=== PATIENT | male | born 1970 | race Caucasian/White ===

== ENCOUNTER 2022-06-21 17:03 | Emergency (ER) | payer MEDICARE ==
[~2022-06-21] VITALS: Ht 172.7 cm; Wt 73.0 kg
[2022-06-21] MEDS ORDERED: KETOROLAC 60MG/2ML VIAL IM STA (17:13)
[2022-06-21] MEDS ORDERED: CYCL10TA21 MT (19:23)
[2022-06-21] MEDS ORDERED: IBUP-2029 MT (19:23)
[2022-06-21 19:45] VITALS: BP 138/92
== END 2022-06-21 19:52 | disposition home or self-care (01) ==
LOC: ER 17:03
DX: S20.219A Contusion of unspecified front wall of thorax, initial encounter (principal); V49.49XA Driver injured in collision with other motor vehicles in traffic accident, initial encounter; Y93.89 Activity, other specified; Y92.89 Other specified places as the place of occurrence of the external cause; Y99.8 Other external cause status
CPT/HCPCS: 71045; 93005; 96372; 99283; J1885

== ENCOUNTER → 2023-10-30 | Day surgery (SDC) | payer MEDICARE, MEDICAID ==
[~2023-10-30] VITALS: Ht 175.3 cm; Wt 73.5 kg
[~2023-10-30] MED LIST: AMIT10TA6 PO; BENZ100C86 PO; CHOL200026 PO; DEXAMETHASONE 4MG/ML 1ML VIAL ONE; FENTANYL CITRATE/PF 50MCG/ML 2ML VIAL IV PRN; FENTANYL CITRATE/PF 50MCG/ML 2ML VIAL ONE; FINA5TAB11 PO; GUAI600T26 PO; HYDROMORPHONE HCL/PF 1MG/ML INJ IV PRN; IBUP-2030 PO; LIDOCAINE HCL 1% 10 MG/ML 10ML VIAL ONE; MECL-299 PO; MIDAZOLAM HCL 2 MG/2 ML VIAL ONE; ONDANSETRON HCL 4MG/2ML INJ IV PRN; ONDANSETRON HCL 4MG/2ML INJ ONE; PARO40TA75 PO; PIPERACILLIN/TAZO 3.375G/50ML 50 ML IV SCH; PREG100C PO; PROPOFOL 200MG/20ML VIAL IV ONE; ROCURONIUM BROMIDE 10MG/ML VIAL 5ML IV ONE; SUGAMMADEX SODIUM 200MG/2ML VIAL IV ONE; TAMS-11 PO; TOPUD PO; [UNRECOGNIZED DRUG - CODE] PO
[2023-10-30] MEDS: LACTATED RINGERS 1,000 ML IV SCH (06:21)
[2023-10-30] MEDS: ACETAMINOPHEN 1000MG/100ML 100 ML IV NR (10:43)
== END | disposition home or self-care (01) ==
LOC: OR 05:11
PROVIDERS: ATTEND Urology
DX: C61 Malignant neoplasm of prostate (principal); I10 Essential (primary) hypertension; M19.90 Unspecified osteoarthritis, unspecified site; F41.9 Anxiety disorder, unspecified; I25.2 Old myocardial infarction; Z86.73 Personal history of transient ischemic attack (TIA), and cerebral infarction without residual deficits; Z79.899 Other long term (current) drug therapy; Z98.890 Other specified postprocedural states; Z88.0 Allergy status to penicillin
CPT/HCPCS: 55880; J3010; J0131; J1100; J3490 ×2; J2250; J2405; J2543; J2704

== ENCOUNTER 2023-12-04 12:34 | Emergency (ER) | payer MEDICARE, MEDICAID ==
[~2023-12-04] VITALS: Ht 175.3 cm; Wt 73.5 kg
[~2023-12-04 12:34] MED LIST changes: +APIX5TAB MT; -BENZ100C86 PO; -DEXAMETHASONE 4MG/ML 1ML VIAL ONE; +DOCU-138 MT; -FENTANYL CITRATE/PF 50MCG/ML 2ML VIAL IV PRN; -FENTANYL CITRATE/PF 50MCG/ML 2ML VIAL ONE; -FINA5TAB11 PO; +FLUT15.844 BOTHNSTRLS; -GUAI600T26 PO; -HYDROMORPHONE HCL/PF 1MG/ML INJ IV PRN; -IBUP-2030 PO; +IPRA42SP BOTHNSTRLS; -LIDOCAINE HCL 1% 10 MG/ML 10ML VIAL ONE; -MECL-299 PO; -MIDAZOLAM HCL 2 MG/2 ML VIAL ONE; +MONT-39 MT; -ONDANSETRON HCL 4MG/2ML INJ IV PRN; -ONDANSETRON HCL 4MG/2ML INJ ONE; -PIPERACILLIN/TAZO 3.375G/50ML 50 ML IV SCH; -PREG100C PO; -PROPOFOL 200MG/20ML VIAL IV ONE; -ROCURONIUM BROMIDE 10MG/ML VIAL 5ML IV ONE; -SUGAMMADEX SODIUM 200MG/2ML VIAL IV ONE
[2023-12-04 12:44] VITALS: O2SAT 98
[2023-12-04 14:28] LABS: CLARITY URINE CLEAR (CLEAR); COLOR URINE YELLOW (YELLOW); GLUCOSE URINE NEGATIVE (NEGATIVE); KETONES URINE TRACE (NEGATIVE); LEUKOCYTE ESTERASE URINE 3+ (NEGATIVE); NITRITE URINE NEGATIVE (NEGATIVE); OCCULT BLOOD URINE 2+ (NEGATIVE); PROTEIN URINE NEGATIVE (NEGATIVE); SPECIFIC GRAVITY URINE 1.005 (1.005-1.030); UROBILINOGEN URINE 0.2 E.U./dL (0.2-1.0)
[2023-12-04 14:59] LABS: SQUAMOUS EPITHELIAL CELL URINE NONE SEEN /lpf (RARE/1+)
[2023-12-04 15:00] LABS: RBC URINE 0-2 /hpf (0-2); WBC URINE 15-25 /hpf (0-2)
[2023-12-04 15:01] LABS: BACTERIA URINE TRACE
[2023-12-04 15:38] LABS: BASOPHILS % 0.7 % (0.0-2.0); EOSINOPHILS % 0.3 % (0.0-5.0); HEMATOCRIT. 43.3 % (42.0-52.0); HEMOGLOBIN. 14.9 g/dL (14.0-18.0); LYMPHOCYTES % 13.2 % (20.0-50.0); MEAN CORPUSCULAR HEMOGLOBIN 31.7 pg (28.0-32.0); MEAN CORPUSCULAR HGB CONC 34.4 g/dL (31.0-37.0); MEAN CORPUSCULAR VOLUME 92.2 fL (80.0-94.0); MONOCYTES % 5.1 % (2.0-8.0); NEUTROPHILS % 80.7 % (40.0-76.0); PLATELET 271 x1000/uL (130-400); RED BLOOD CELL COUNT 4.69 mill/uL (4.7-6.1); RED CELL DISTRIBUTION WIDTH 13.2 % (11.6-14.6); WHITE BLOOD COUNT 7.9 x1000/uL (4.5-11.0)
[2023-12-04 15:41] LABS: CHLORIDE 106 mEq/L (98-107); POTASSIUM 3.5 mEq/L (3.5-5.1); SODIUM 140 mEq/L (136-145)
[2023-12-04 15:42] LABS: CALCIUM 9.8 mg/dL (8.7-10.4); CARBON DIOXIDE 25 mEq/L (21-32)
[2023-12-04 15:47] LABS: CREATININE 0.9 mg/dL (0.6-1.3); GLUCOSE 100 mg/dL (70-105)
[2023-12-04 15:48] LABS: UREA NITROGEN BLOOD 11 mg/dL (9-23)
[2023-12-04 15:49] LABS: ALANINE AMINOTRANSFERASE 20 IU/L (10-49); ALBUMIN 4.5 g/dL (3.2-4.8); ASPARTATE AMINOTRANSFERASE 22 IU/L (<34); BILIRUBIN DIRECT 0.2 mg/dL (<=3.0)
[2023-12-04 15:50] LABS: BILIRUBIN TOTAL 0.9 mg/dL (0.1-1.0)
[2023-12-04] MEDS: SODIUM CHLORIDE 0.9% 1,000 ML IV ONE (16:24)
[2023-12-04] MEDS: CEFTRIAXONE 1GM/50ML 50 ML IV ONE (16:24)
[2023-12-04] MEDS ORDERED: CEFP200T13 MT (16:49)
[2023-12-04 18:12] VITALS: BP 128/82; PULSE 87; RESP 16; TEMP 36.83628; O2SAT 98
== END 2023-12-04 18:15 | disposition home or self-care (01) ==
LOC: ER 12:34
DX: N39.0 Urinary tract infection, site not specified (principal); Z88.0 Allergy status to penicillin; Z79.899 Other long term (current) drug therapy; Z98.890 Other specified postprocedural states
CPT/HCPCS: 99285; 74176; 96365; 93976; 80076; 80048; 81003; 83605; 83690; 85025; 87086; 36415; 76870; J0696; J7030